=== PATIENT | male | born 1950 | race Caucasian/White ===

== ENCOUNTER → 2018-06-15 | Outpatient (CLI) | payer BC | LOC: M.RAD 15:06 | DX: Z00.01 Encounter for general adult medical examination with abnormal findings (principal); M47.814 Spondylosis without myelopathy or radiculopathy, thoracic region; Z87.891 Personal history of nicotine dependence ==

== ENCOUNTER → 2020-09-27 | Outpatient (CLI) | payer BC ==
--- NOTE | ~2020-09-27 | ONC ---
[place] [address] RADIATION ONCOLOGY NOTE Name: CHRISTOPHE CURRY Room: [facility]#: [id number] Admission: 09/27/20 Attend Phys: Bolivar Galvan MD Discharge: Date of : 48 Report #: [id number] THIS REPORT FOR: cc: Sheng Nath Russell J. DO ~ Bolivar Galvan MD DATE OF SERVICE: 09/27/2020 RADIATION ONCOLOGY NOTE REFERRING PHYSICIANS: Ayaan Cano MD as well as French Holloway MD and Sheng Nath DO PRIMARY SITE AND HISTOPATHOLOGY: Locally advanced tonsillar cancer. HISTORY OF PRESENT ILLNESS: The patient was seen by the radiation oncologist, Dr. Holloway on 09/04/2020. He indicated that he had a sore throat earlier this year with the development of a left neck mass and he was initially started on antibiotics and this may have been going on summer between September and 04/2020. Ultimately, the neck mass did not resolve and he saw Dr. Flores, then went to see Dr. Cano for a second opinion and he had a CT of the neck on 08/13/2020 which revealed a 1.6 cm left tonsillar mass and an enlarged left level 2 lymph node. He had also a PET CT scan done on 08/18/2020, which revealed increased focal uptake within the left tonsillar pillar and also left cervical lymphadenopathy. He had a fine needle aspirate biopsy of the left neck mass on 09/09/2020 and that revealed a squamous cell cancer and the immunohistochemical staining for p16 was negative. He was closer to the [facility] [place] office, so he presents to [facility] [place] office for treatment with radiation therapy with consideration for chemotherapy. He has an appointment with the medical oncologist, Dr. Jj on 09/30/2020. PAST MEDICAL HISTORY AND PAST SURGICAL HISTORY: Generally unremarkable. MEDICATIONS: Really just multivitamin. ALLERGIES: He has no known drug allergies. FAMILY HISTORY: Unremarkable. SOCIAL HISTORY: He did smoke cigarettes in the past. He quit smoking in 1972, maybe smoked about a pack a day for about 6 years. Prior to that time, he said he smoked cigarettes since he was about 15 years of age and again he quit in 1972. REVIEW OF SYSTEMS: GENERAL: He denied [place] any [place] [address] RADIATION ONCOLOGY NOTE Name: CHRISTOPHE CURRY Room: [facility]#: [id number] Admission: 09/27/20 Attend Phys: Bolivar Galvan MD Discharge: Date of : 48 Report #: [id number] SKIN: He denied having color changes or itching. LYMPH NODES: He had enlarged lymph node in the left neck area. ENDOCRINE: He denied having any hot or cold intolerance. HEMATOLOGY/IMMUNOLOGY: He denied having any anemia. MUSCULOSKELETAL: He does have chronic back discomfort, he had back surgery in 1989. He had a laminectomy at the fifth lumbar vertebral body. HEAD AND NECK: He denied having any headaches or migraines. RESPIRATORY: He denied having shortness of breath. CARDIOVASCULAR: He denied having any palpitations. GASTROINTESTINAL: He denied having any nausea or vomiting. NEUROLOGIC: He denied having any focal weakness. PHYSICAL EXAMINATION: VITAL SIGNS: Height is 5 feet 10 inches, weight 212.2 pounds, blood pressure 161/73, pulse 72, oxygen saturation 96%, temperature 98.2 degrees Fahrenheit. He has a performance status of about Karnofsky performance status of 90%. LYMPH NODES: He has left neck lymphadenopathy that measured 6 cm x 6 cm x 2.5 cm. EYES: Pupils were equal, round, react to light and accommodation. HEAD, EARS, NOSE AND THROAT: Mouth had suspicious visible lesions in the left tonsil area and that was also firm on palpation. There were no other suspicious visible lesions or suspicious palpable lesions. HEART: Had a regular rate and rhythm without murmur. LUNGS: Clear to auscultation. ABDOMEN: Nontender. Spleen was not palpable. Liver was at the costal margin. EXTREMITIES: Had no clubbing, cyanosis or edema. NEUROLOGIC: Cranial nerves 2-12 are intact. Sensation was intact. He has 5/5 strength throughout. LABORATORY DATA: From 09/17/2020; hemoglobin 13.5, platelets 220,000, white blood cells 7.4. Sodium 137, potassium 4.3, BUN 12, creatinine 1.19. ASSESSMENT AND PLAN: 1. Tonsillar cancer. He was offered radiation therapy with consideration for chemotherapy for his locally advanced left tonsillar cancer. The efficacy of chemotherapy and radiation therapy can be found in the meta-analysis study of chemotherapy and head and neck cancer and that showed that the addition of chemotherapy to radiation therapy compared to radiation therapy alone correspond to an option of improvement of 5% in overall survival at 5 years and that improvement went up to 8% when the chemotherapy was given concurrently. So the risks, benefits, logistics of radiation therapy were discussed with the patient in detail. I gave his witnessed, informed consent to proceed with radiation therapy. 2. Dentition - the patient will be referred to his dentist as he gets ready for radiation therapy. 3. Nutritional status. He seems to be eating well and he was encouraged to try [place] [address] RADIATION ONCOLOGY NOTE Name: CHRISTOPHE CURRY Room: [facility]#: [id number] Admission: 09/27/20 Attend Phys: Bolivar Galvan MD Discharge: Date of : 48 Report #: [id number] to maintain his weight and maintain his nutrition. Gastric tube was discussed with the patient when he would like to try to see if he can manage without a gastric tube during the radiation therapies. Thank you very much for allowing me to participate in the care of this patient. By: [id number] Galvan MD /nt
== END ==
LOC: M.RTH 10:30
PROVIDERS: ATTEND Radiology Radiation Oncology
DX: Z08 Encounter for follow-up examination after completed treatment for malignant neoplasm (principal); Z85.818 Personal history of malignant neoplasm of other sites of lip, oral cavity, and pharynx

== ENCOUNTER → 2020-12-04 | Outpatient (CLI) | payer BC ==
[2020-12-04] VITALS (7 sets, daily range): BP systolic 126–150; BP diastolic 71–87
[~2020-12-04] VITALS: Ht 177.8 cm; Wt 94.8 kg
[2020-12-04 11:07] LABS: HEMATOCRIT 32.6 % (42.0-52.0); MCH 31.7 pg (26.0-34.0); MCHC 33.8 g/dL (28.0-37.0); MCV 93.8 fL (80.0-100.0); MPV 6.5 fl. (7.2-11.1); RBC 3.47 mil/uL (4.50-6.00); RDW-CV 12.9 % (10.5-14.5); WBC 13.3 thou/uL (4.0-11.0)
[2020-12-04 11:19] LABS: CALCIUM 8.6 mg/dL (8.5-10.1); CREATININE 1.2 mg/dL (0.6-1.3); POTASSIUM 4.2 mmol/L (3.5-5.1)
[2020-12-04 11:22] LABS: PROTIME 10.8 Seconds (9.20-11.50)
== END | disposition home or self-care (01) ==
LOC: M.INT 10:13
PROVIDERS: Radiology Diagnostic Radiology; ATTEND Radiology Radiation Oncology
DX: C14.0 Malignant neoplasm of pharynx, unspecified (principal); E46 Unspecified protein-calorie malnutrition; I10 Essential (primary) hypertension; Z98.890 Other specified postprocedural states; Z79.899 Other long term (current) drug therapy; Z87.891 Personal history of nicotine dependence

== ENCOUNTER → 2021-01-30 | Outpatient (CLI) | payer BC | END | disposition home or self-care (01) | LOC: M.INT 08:05 | PROVIDERS: ATTEND Radiology Radiation Oncology | DX: Z43.1 Encounter for attention to gastrostomy (principal) ==